=== PATIENT | female | born 1945 | race Caucasian/White ===

== ENCOUNTER → 2016-04-20 | Outpatient (CLI) | payer MEDICARE, BC ==
--- NOTE | 2016-04-20 12:03 | KCIC ---
Bilateral digital screening mammograms with CAD: HISTORY Routine screening. COMPARISON Comparison is made to previous studies dated 04/05/2015 and 02/11/2014. FINDINGS Breast density category B. The skin and nipples show no abnormalities. No abnormal lymph nodes are seen in the axilla. The breast parenchyma shows scattered fibroglandular density. There are no dominant masses, suspicious calcifications or architectural distortions. Benign appearing calcifications are again seen. IMPRESSION No evidence of malignancy. Recommend routine annual mammographic screening. This study was interpreted with the benefit of Computerized Aided Detection (CAD). Mammography is not 100% sensitive in detecting breast cancer. Therefore, a self breast exam and a clinical breast exam are very important. A negative mammogram does not negate a clinically suspicious finding and should not result in a delay in biopsying a clinically suspicious abnormality. BI-RADS category 2: Benign. This patient's information has been entered into a reminder system for the patient to be notified with the results of this examination and a target date for her next mammograms. Electronically signed by: Maylin Valenzuela MD (Apr 20, 2016 12:01:42)
== END | disposition home or self-care (01) ==
LOC: KCIC MAMMO 10:43
PROVIDERS: ATTEND Family Medicine
DX: Z12.31 Encounter for screening mammogram for malignant neoplasm of breast (principal)
CPT/HCPCS: G0202; 77067

== ENCOUNTER → 2017-05-08 | Outpatient (CLI) | payer MEDICARE | END | disposition home or self-care (01) | LOC: KCIC MAMMO 09:21 | DX: Z12.31 Encounter for screening mammogram for malignant neoplasm of breast (principal) | CPT/HCPCS: 77067 ==

== ENCOUNTER → 2018-05-23 | Outpatient (CLI) | payer MEDICARE, BC ==
--- NOTE | 2018-05-23 13:05 | KCIC ---
Bilateral digital screening mammograms: Reason for examination: Routine screening. Comparison is made to previous studies dated back to 04/05/2015. Interpretation was made with the benefit of CAD. The skin and nipples show no abnormalities. No abnormal axillary lymph nodes are seen. The breast parenchyma shows scattered fibroglandular density. (Breast density: Category B.) There appears to be a small nodule developing in the 8:30 B position of the right breast. Further evaluation with ultrasound is recommended. There are no other new dominant masses, suspicious calcifications or architectural distortions. Some benign calcifications are present. Impression: Small 7 mm nodular density developing at the 8:30 B position of the right breast approximately 10 cm from the nipple. Recommend further evaluation with ultrasound. BI-RADS category 0: Incomplete. Needs additional imaging evaluation "Our facility is accredited by the [employer] Mammography Program." This patient's information has been entered into a reminder system for the patient to be notified with the results of her examination and a target date for the next mammogram. Electronically signed by: Marely Valenzuela MD (05/23/2018 1:02 PM) [facility]
== END | disposition home or self-care (01) ==
LOC: KCIC MAMMO 07:48
PROVIDERS: ATTEND Family Medicine
DX: Z12.31 Encounter for screening mammogram for malignant neoplasm of breast (principal); R92.8 Other abnormal and inconclusive findings on diagnostic imaging of breast
CPT/HCPCS: 77067

== ENCOUNTER → 2018-06-11 | Outpatient (CLI) | payer MEDICARE, BC ==
--- NOTE | 2018-06-11 14:04 | KCIC ---
Right breast ultrasound: Reason for examination: Right breast lesion on mammographic exam. Comparison is made to mammographic exam dated 05/23/2018. Ultrasound examination was performed in the area of mammographic concern and at the right axilla. In the 9:00 position 9 cm from the nipple, there is an irregularly marginated hypoechoic lesion measuring at least 1.1 cm in greatest dimension. Malignancy cannot be excluded. No other cystic or solid nodules are seen. No abnormal appearing lymph nodes are seen in the axilla. IMPRESSION: 1.1 cm hypoechoic irregularly marginated lesion at the 9:00 position 9 cm from the nipple. Malignancy is suspected. Ultrasound-guided biopsy is recommended. BI-RADS Category 5: Highly suggestive of malignancy. The patient did not want findings to be discussed with her but the patient's nurse practitioner, Taylor Wilson, was notified about these findings at 2:00 PM on 06/11/2018. "Our facility is accredited by the [employer] Mammography Program." Electronically signed by: Marely Valenzuela MD (06/11/2018 2:00 PM) [facility]
== END | disposition home or self-care (01) ==
LOC: KCIC US 12:43
PROVIDERS: ATTEND Nurse Practitioner
DX: N64.89 Other specified disorders of breast (principal)
CPT/HCPCS: 76641

== ENCOUNTER → 2018-07-18 | Outpatient (CLI) | payer MEDICARE, BC ==
[~2018-07-18] MED LIST: LIDOCAINE 2%/EPI 1:100,000 20 ML VIAL. IJ ONE
--- NOTE | 2018-07-23 13:08 | PATHOLOGY ---
[facility] Accession Number: [id number] . 01 Material submitted: . breast - RIGHT BREAST MASS, 9:00. Modifiers: right, 9:00 . 01 Clinical history: . Right breast mass . 02 Diagnosis: Breast mass, right, 9:00, core needle biopsy: - INVASIVE MODERATELY DIFFERENTIATED LOBULAR CARCINOMA (MBR GRADE II). - Size of invasive carcinoma: 8 mm, at least. - No definite associated in situ carcinoma. . (Please see comment) . (SKM:christine; 07/19/2018) QMS/07/23/2018 . 02 Comment: The tumor cells present in block A2 of this case are negative for e-cadherin which supports a diagnosis of lobular carcinoma. . This case has also been reviewed by Dr. Darryl Etienne M.D., who agrees with the diagnosis of invasive mammary carcinoma. . The findings in this case were discussed with Dr. Delroy Motta on 07/19/18. . The tumor present in block A1 will be sent for breast prognostic studies by image analysis. The results will be issued in an addendum report. (SKM:christine; 07/19/2018) . 02 Electronically signed: . Gareth Delong MD, Pathologist NPI- [id number] . 01 Gross description: . Received in formalin labeled "Jael España, right breast," and additionally labeled on the requisition as "9:00," are multiple needle cores of yellow-guzman fibrofatty tissue measuring 3.3 x 2.9 x 0.6 cm in aggregate dimensions. The tissue is submitted in its entirety in cassette A1 through A3. The cold ischemic time is unknown. The total formalin fixation time is greater than 7 hours and 72 hours. (TSD; 07/18/2018) TOB/TOB . 02 Pathologist provided ICD-10: C50.911 . 02 CPT . 913204 Specimen Comment: A courtesy copy of this report has been sent to Specimen Comment: [phone], . Specimen Comment: Report sent to / DR NATION Performed at: 01 [facility] [address] [place] [address] [address], [place] [id number] MD Gavin Gaona MD Phone: [phone] Performed at: 02 [facility] [address] [place], [place] [id number] MD Peewee Main MD Phone: [phone]
--- NOTE | 2018-07-24 10:02 | RAD ---
Ultrasound-guided right breast biopsy, 07/18/2018: History: Suspicious breast nodule Previous imaging demonstrated a suspicious nodule at the 9:00 location in the right breast approximately 9 cm from nipple. Under local anesthesia, aseptic conditions and sonographic guidance the Proxima Cancion biopsy instrument was passed into this nodule. The nodule is quite dense with considerable resistance to passage of the needle. Multiple 12-gauge vacuum-assisted core samples were obtained. A biopsy marker was then deposited at the biopsy site. The biopsy instrument was removed and hemostasis obtained. Two-view postprocedural digital mammograms were then obtained to document position of the biopsy marker. There is mild streaky increased density at the biopsy site compatible with biopsy-related hemorrhage. The patient tolerated the procedure well and left the department in good condition. Note: The subsequent pathology report indicated the presence of invasive moderately differentiated lobular carcinoma. This is considered to be a concordant finding. Note: The findings were called to Taylor Wilson at 9:57 AM on 07/24/2018.
== END | disposition home or self-care (01) ==
LOC: US 12:39
PROVIDERS: ATTEND Nurse Practitioner
DX: C50.911 Malignant neoplasm of unspecified site of right female breast (principal)
CPT/HCPCS: 19083; 77065; 88305; 88361; C1713; 19081; 76942

== ENCOUNTER → 2018-09-23 | Outpatient (CLI) | payer MEDICARE, BC ==
--- NOTE | 2018-09-23 08:59 | KCIC ---
Indication: Postmenopausal. Breast cancer. TECHNIQUE: DEXA scan COMPARISON: 12/21/2011 FINDINGS: The bone mineral density from L1-L4 measures 1.095 g/sq cm with T score of 0.4, previously 0.8. The bone mineral density in the left femoral neck measures 0.855 g/sq cm with T score of -0.7, previously 0.6. IMPRESSION: Normal bone mineral density at all measured sites. Electronically signed by: Dom Bradley DO (09/23/2018 8:56 AM) [facility]
== END | disposition home or self-care (01) ==
LOC: KCIC DEXA 07:44
PROVIDERS: ATTEND Nurse Practitioner
DX: Z13.820 Encounter for screening for osteoporosis (principal); C50.919 Malignant neoplasm of unspecified site of unspecified female breast; N95.9 Unspecified menopausal and perimenopausal disorder
CPT/HCPCS: 77080

== ENCOUNTER 2019-06-24 03:26 | Emergency (ER) | payer MEDICARE, BC ==
[~2019-06-24] VITALS: Ht 162.6 cm; Wt 90.9 kg
[~2019-06-24 03:26] MED LIST changes: +ACET325T21 PO; +ASPI-612 PO; +ATOR40TA59 PO; +DOCU100C28 PO; +FEMARA2.5 MG PO; +LACT1CAP63 PO; +LEVO250T7 PO; -LIDOCAINE 2%/EPI 1:100,000 20 ML VIAL. IJ ONE; +MAGN24003 PO; +METO25TA4 PO; +NITR0.4T22 SL; +PRAS10TA9 PO
[2019-06-24 03:59] LABS: BASO % 1 % (0-3); EOS # 0.1 x10^3/uL (0.0-0.7); EOS % 1 % (0-3); HEMATOCRIT 39.2 % (36.0-47.0); LYMPH # 1.4 x10^3/uL (1.0-4.8); LYMPH % 20 % (24-48); MEAN CORPUSCULAR HEMOGLOBIN 31 pg (25-35); MEAN CORPUSCULAR HGB CONC 33 g/dL (31-37); MEAN CORPUSCULAR VOLUME 92 fL (79-100); MONO # 0.5 x10^3/uL (0.0-1.1); MONO % 8 % (0-9); NEUT # 4.7 x10^3/uL (1.8-7.7); NEUT % 70 % (31-73); PLATELET COUNT 190 x10^3/uL (140-400); RED BLOOD COUNT 4.28 x10^6/uL (3.50-5.40); RED CELL DISTRIBUTION WIDTH 14.6 % (11.5-14.5); WHITE BLOOD COUNT 6.8 x10^3/uL (4.0-11.0)
[2019-06-24 04:06] LABS: CALCIUM 9.4 mg/dL (8.5-10.1); GFR 54.3; POTASSIUM 3.6 mmol/L (3.5-5.1)
[2019-06-24 04:11] LABS: ALBUMIN 3.5 g/dL (3.4-5.0); TOTAL BILIRUBIN 0.4 mg/dL (0.2-1.0); TOTAL PROTEIN 6.9 g/dL (6.4-8.2)
--- NOTE | 2019-06-24 05:00 | PHYS DOC ---
Past Medical History Past Medical History: Anxiety, Hypertension Past Surgical History: Other Additional Past Surgical Histo: cardiac stent Smoking Status: Never Smoker Alcohol Use: None Drug Use: None General Adult EDM: Chief Complaint: VAGINAL BLEEDING HPI: HPI: Patient is a 74 year old female who presents with report of vaginal bleeding that started a few days ago. Patient indicates that it was initially very light flow and states that she had been going through about 2 pads per day but then she states that her earlier this evening, she noticed that she was bleeding a lot heavier and had gone through 3 pads in the last 2 hours. Patient states that she when she went to the bathroom this evening it was just a steady dripping from the vagina. Patient denies being sexually active and has had no trauma. Patient is on a blood thinner.[] Review of Systems: Review of Systems: Constitutional: Denies fever or chills. [] Respiratory: Denies cough or shortness of breath. [] Cardiovascular: Denies chest pain or edema. [] GI: Denies abdominal pain, nausea, vomiting or diarrhea. [] : Complains of vaginal bleeding. [] Musculoskeletal: Denies back pain or joint pain. [] Integument: Denies rash. [] Neurologic: Denies headache, focal weakness or sensory changes. Complains of lightheadedness [] A full 10 point review of systems has been reviewed and is otherwise negative. Heart Score: Risk Factors: Risk Factors: DM, Current or recent (<one month) smoker, HTN, HLP, family history of CAD, obesity. Risk Scores: Score 0 - 3: 2.5% MACE over next 6 weeks - Discharge Home Score 4 - 6: 20.3% MACE over next 6 weeks - Admit for Clinical Observation Score 7 - 10: 72.7% MACE over next 6 weeks - Early Invasive Strategies Allergies: Allergies: Allergies Coded Allergies Type Severity Reaction Last Updated Verified meperidine Allergy Intermediate 03/03/19 Yes morphine Adverse Reaction Mild N/V 03/03/19 Yes Physical Exam: PE: Constitutional: Well developed, well nourished, no acute distress, non-toxic appearance. [] HENT: Normocephalic, atraumatic, bilateral external ears normal, oropharynx moist, no oral exudates, nose normal. [] Eyes: PERRLA, EOMI, conjunctiva normal, no discharge. [] Neck: Normal range of motion, no tenderness, supple, no stridor. [] Cardiovascular: Tachycardic rate with regular rhythm[] Lungs & Thorax: Bilateral breath sounds clear to auscultation [] Abdomen: Bowel sounds normal, soft, no tenderness. [] Skin: Warm, dry, no erythema, no rash. [] Extremities: No tenderness, no cyanosis, no clubbing, ROM intact, no edema. [] Neurologic: Alert and oriented X 3, no focal deficits noted. [] Current Patient Data: Labs: Laboratory Tests Test 06/24/19 03:46 White Blood Count 6.8 x10^3/uL (4.0-11.0) Red Blood Count 4.28 x10^6/uL (3.50-5.40) Hemoglobin 13.0 g/dL (12.0-15.5) Hematocrit 39.2 % (36.0-47.0) Mean Corpuscular Volume 92 fL (79-100) Mean Corpuscular Hemoglobin 31 pg (25-35) Mean Corpuscular Hemoglobin Concent 33 g/dL (31-37) Red Cell Distribution Width 14.6 % (11.5-14.5) H Platelet Count 190 x10^3/uL (140-400) Neutrophils (%) (Auto) 70 % (31-73) Lymphocytes (%) (Auto) 20 % (24-48) L Monocytes (%) (Auto) 8 % (0-9) Eosinophils (%) (Auto) 1 % (0-3) Basophils (%) (Auto) 1 % (0-3) Neutrophils # (Auto) 4.7 x10^3/uL (1.8-7.7) Lymphocytes # (Auto) 1.4 x10^3/uL (1.0-4.8) Monocytes # (Auto) 0.5 x10^3/uL (0.0-1.1) Eosinophils # (Auto) 0.1 x10^3/uL (0.0-0.7) Basophils # (Auto) 0.0 x10^3/uL (0.0-0.2) Sodium Level 142 mmol/L (136-145) Potassium Level 3.6 mmol/L (3.5-5.1) Chloride Level 105 mmol/L (98-107) Carbon Dioxide Level 28 mmol/L (21-32) Anion Gap 9 (6-14) Blood Urea Nitrogen 23 mg/dL (7-20) H Creatinine 1.0 mg/dL (0.6-1.0) Estimated GFR (Cockcroft-Gault) 54.3 BUN/Creatinine Ratio 23 (6-20) H Glucose Level 164 mg/dL (70-99) H Calcium Level 9.4 mg/dL (8.5-10.1) Total Bilirubin 0.4 mg/dL (0.2-1.0) Aspartate Amino Transferase (AST) 23 U/L (15-37) Alanine Aminotransferase (ALT) 27 U/L (14-59) Alkaline Phosphatase 61 U/L (46-116) Total Protein 6.9 g/dL (6.4-8.2) Albumin 3.5 g/dL (3.4-5.0) Albumin/Globulin Ratio 1.0 (1.0-1.7) Laboratory Tests 06/24/19 03:46 Laboratory Tests 06/24/19 03:46 Vital Signs: Vital Signs Date Time Temp Pulse Resp B/P (MAP) Pulse Ox O2 Delivery O2 Flow Rate FiO2 06/24/19 03:32 98.1 118 18 185/88 (120) 99 Room Air 98.1 EKG: EKG: [] Radiology/Procedures: Radiology/Procedures: [] Impression: PROCEDURE: PELVIS W/TV INDICATION: Postmenopausal bleeding. Last menstrual period was 20 years ago. COMPARISON: None available. TECHNIQUE: Endovaginal sonography was performed FINDINGS: Exam is limited given patient body habitus. The uterus measures 9.5 x 6.3 x 5.9 cm. Endometrium is not well visualized. However within the fundus of the uterus there is a complex collection measuring approximately 6 x 5 cm, with echogenic and hypoechoic components, likely hemorrhagic products. Associated underlying mass cannot be excluded The ovaries are not seen. There is no significant free pelvic fluid. IMPRESSION: 1. The endometrium is markedly distended with complex collection, likely hemorrhagic material. However underlying mass cannot be entirely excluded given limitations of examination. Electronically signed by: Eric Mosher MD (06/24/2019 4:59 AM) [facility] Course & Med Decision Making: Course & Med Decision Making Pertinent Labs and Imaging studies reviewed. (See chart for details) Patient moved to room upon arrival was evaluated by your medical staff after which an IV was established and blood work was drawn. An ultrasound of the pelvis with transvaginal was completed with abnormal findings. Dr. Cruz was contacted for admission; however, she felt the patient would best be served by transfer to . Dr. Paz will accept patient in transfer. Dragon Disclaimer: Dragon Disclaimer: This electronic medical record was generated, in whole or in part, using a voice recognition dictation system. Departure Departure Impression: Primary Impression: Postmenopausal bleeding Disposition: 02 TRANSFER T-[facility] Condition: GOOD Referrals: LEONOR NATION (PCP) ELOY [place] Jr. DO Jun 24, 2019 05:00
[2019-06-24 06:20] VITALS: BP 162/72
--- NOTE | 2019-06-24 06:38 | EKG ---
[facility] [address] [place] [address] Test Date: 2019-06-24 Test Time: 05:20:07 Pat Name: ARYA BUCHANAN Department: Room: Gender: F Machine Sign Writer: : 1945 Requested By: ELOY NY Order Number: [id number] Reading MD: John Norris Measurements Intervals [place] Rate: 102 P: 90 [place]: 202 QRS: -2 QRSD: 82 T: 53 QT: 324 QTc: 426 Interpretive Statements SINUS TACHYCARDIA COMPLEX(ES) WITH ABERRANT INTRAVENTRICULAR CONDUCTION PROLONGED [place] INTERVAL QRS(T) CONTOUR ABNORMALITY CONSISTENT WITH ANTEROSEPTAL INFARCT AGE UNDETERMINED Electronically Signed On 06-24-2019 11:24:41 CDT by John Norris
== END 2019-06-24 06:20 | disposition short-term general hospital (02) ==
LOC: ER 03:26
DX: N95.0 Postmenopausal bleeding (principal); R42 Dizziness and giddiness; F41.9 Anxiety disorder, unspecified; I10 Essential (primary) hypertension; Z98.890 Other specified postprocedural states; Z88.6 Allergy status to analgesic agent
CPT/HCPCS: 36415; 76830; 76856; 80053; 85025; 93005; 99285

== ENCOUNTER → 2019-12-08 | Outpatient (CLI) | payer MEDICARE, BC ==
[~2019-12-08] MED LIST changes: -ASPI-612 PO; +ASPI-886 PO
--- NOTE | 2019-12-08 12:41 | CARD ---
MR#: [id number] Date of Study: 12/08/2019 Ordering Physician: MARCOS KELLER, Referring Physician: MARCOS KELLER, Tech: Nyasia Thomas [facility] APPROVED REPORT EXAM: Two-dimensional and M-mode echocardiogram with Doppler and color Doppler. Other Information Quality : Good INDICATION Cardiac Disease: CAD 2D DIMENSIONS RVDd2.8 (2.9-3.5cm)Left Atrium(2D)4.3 (1.6-4.0cm) IVSd1.0 (0.7-1.1cm)Aortic Root(2D)2.9 (2.0-3.7cm) LVDd6.5 (3.9-5.9cm)LVOT Diameter2.3 (1.8-2.4cm) PWd0.9 (0.7-1.1cm)LVDs4.3 (2.5-4.0cm) FS (%) 34.1 %SV131.5 ml LVEF(%)61.9 (>50%) Aortic Valve AoV Peak Vance.171.1cm/sAoV VTI34.9cm AO Peak GR.11.7mmHgLVOT Peak Vance.109.5cm/s AO Mean GR.6mmHgAVA (VMAX)2.59cm2 LUIS FELIPE (VTI)2.60cm2 Mitral Valve MV E Hxqzdlrh140.1cm/sMV DECEL [id number] MV A Pyimvncb924.0cm/sE/A Ratio1.4 Tricuspid Valve TR P. Hzskdula954su/sRAP PAOPFDZV0glLy TR Peak Gr.44djGfSWYJ61kkXx Pulmonary Vein S1 Cuzhezuo17.0cm/sD2 Tkwjzohf25.0cm/s LEFT VENTRICLE The Left Ventricle is mildly to moderately dilated. There is normal left ventricular wall thickness. There is severe LV dysfunction. EF 30-35% The distal half of the LV is severely hypokinetic to akinet ic. Transmitral Doppler flow pattern is Grade II-pseudonormal filling dynamics. RIGHT VENTRICLE The right ventricle is normal size. The right ventricular systolic function is normal. ATRIA The left atrium is mildly dilated. The right atrium size is normal. The interatrial septum is intact with no evidence for an atrial septal defect or patent foramen ovale as noted on 2-D or Doppler imagi ng. AORTIC VALVE The aortic valve is calcified but opens well. Doppler and Color Flow revealed no significant aortic r egurgitation. There is no significant aortic valvular stenosis. MITRAL VALVE The mitral valve is calcified but opens well. There is no evidence of mitral valve prolapse. There is no mitral valve stenosis. Doppler and Color-flow revealed mild mitral regurgitation. TRICUSPID VALVE The tricuspid valve is normal in structure and function. Doppler and Color Flow revealed trace to mil d tricuspid regurgitation. There is moderate-severe pulmonary hypertension. The PA pressure was estim ated at 60 mmHg. There is no tricuspid valve stenosis. PULMONIC VALVE The pulmonic valve is not well visualized. Doppler and Color Flow revealed mild pulmonic valvular reg urgitation. There is no pulmonic valvular stenosis. GREAT VESSELS The aortic root is normal in size. The ascending aorta is not well seen. The IVC is normal in size an d collapses >50% with inspiration. PERICARDIAL EFFUSION There is no evidence of significant pericardial effusion. Critical Notification Critical Value: No <Conclusion> There is severe LV dysfunction. EF 30-35% The distal half of the LV is severely hypokinetic to akinetic. Doppler and Color Flow revealed trace to mild tricuspid regurgitation. There is moderate-severe pulmo nary hypertension. The PA pressure was estimated at 60 mmHg. Signed by : Marcos Keller, Electronically Approved : 12/08/2019 12:41:04
== END | disposition home or self-care (01) ==
LOC: ECHO 09:48
PROVIDERS: ATTEND Internal Medicine Cardiovascular Disease
DX: I08.8 Other rheumatic multiple valve diseases (principal); I27.20 Pulmonary hypertension, unspecified; I25.10 Atherosclerotic heart disease of native coronary artery without angina pectoris
CPT/HCPCS: 93306